=== PATIENT | male | born 1965 | race African-American/Black ===

== ENCOUNTER 2018-03-24 11:19 | Emergency (ER) | payer MEDICARE ==
[~2018-03-24] VITALS: Ht 193 cm; Wt 145.0 kg
[2018-03-24] MEDS ORDERED: ASPIRIN 81MG TABLET PO ONE (12:00)
[2018-03-24] MEDS ORDERED: MORPHINE SULFATE 4 MG/ML CPJ (NOT FOR IM USE) IV ONE (12:00)
[2018-03-24 12:14] LABS: BASOPHILS % 0.2 % (0.0-2.0); EOSINOPHILS % 1.9 % (0.0-5.0); HEMATOCRIT. 43.3 % (42.0-52.0); LYMPHOCYTES % 33.1 % (20.0-50.0); MEAN CORPUSCULAR HEMOGLOBIN 30.5 pg (28.0-32.0); MEAN CORPUSCULAR VOLUME 87.9 fL (80.0-94.0); MEAN PLATELET VOLUME 8.2 fl (7.4-10.4); NEUTROPHILS % 54.8 % (40.0-76.0); PLATELET 361 x1000/uL (130-400); RED BLOOD CELL COUNT 4.92 mill/uL (4.7-6.1); RED CELL DISTRIBUTION WIDTH 14.2 % (11.6-14.6)
[2018-03-24 12:16] LABS: CLARITY URINE CLEAR (CLEAR); COLOR URINE YELLOW (YELLOW); KETONES URINE TRACE (NEGATIVE); LEUKOCYTE ESTERASE URINE NEGATIVE (NEGATIVE); NITRITE URINE NEGATIVE (NEGATIVE); OCCULT BLOOD URINE NEGATIVE (NEGATIVE); PH URINE 6.5 (4.5-8.0); PROTEIN URINE NEGATIVE (NEGATIVE); SPECIFIC GRAVITY URINE 1.028 (1.005-1.030)
[2018-03-24 12:21] LABS: CHLORIDE 102 mEq/L (98-107)
[2018-03-24] MEDS ORDERED: DIPHENHYDRAMINE 50MG/ML VIAL IV ONE (13:45)
[2018-03-24] MEDS ORDERED: KETOROLAC 30MG/ML VIAL IV ONE (16:45)
[2018-03-24 18:04] VITALS: BP 138/74
== END 2018-03-24 18:40 | disposition home or self-care (01) ==
LOC: ER 12:21
DX: R07.89 Other chest pain (principal); M54.6 Pain in thoracic spine; R11.0 Nausea; I10 Essential (primary) hypertension; Z98.890 Other specified postprocedural states
CPT/HCPCS: 36415; 71045; 80053; 81003; 83690; 83880; 84484; 85025; 85610; 93005; 96374; 96375; 99285; J1200; J1885; J2270

== ENCOUNTER 2020-06-21 10:54 | Emergency (ER) | payer MEDICARE, MEDICAID ==
[~2020-06-21] VITALS: Ht 182.9 cm; Wt 136.0 kg
[2020-06-21] MEDS ORDERED: KETOROLAC 60MG/2ML VIAL IM ONE (12:30)
[2020-06-21 13:06] LABS: BASOPHILS % 0.7 % (0.0-2.0); EOSINOPHILS % 1.1 % (0.0-5.0); HEMATOCRIT. 43.4 % (42.0-52.0); HEMOGLOBIN. 15.2 g/dL (14.0-18.0); LYMPHOCYTES % 25.7 % (20.0-50.0); MEAN CORPUSCULAR HEMOGLOBIN 31.3 pg (28.0-32.0); MEAN CORPUSCULAR VOLUME 89.2 fL (80.0-94.0); MEAN PLATELET VOLUME 8.5 fl (7.4-10.4); MONOCYTES % 10.5 % (2.0-8.0); PLATELET 357 x1000/uL (130-400); RED BLOOD CELL COUNT 4.86 mill/uL (4.7-6.1); RED CELL DISTRIBUTION WIDTH 14.1 % (11.6-14.6)
[2020-06-21 13:13] LABS: CHLORIDE 103 mEq/L (98-107)
[2020-06-21] MEDS ORDERED: HYDROCODONE/ACETAMINOPHEN 10/325MG TABLET PO ONE (15:45)
[2020-06-21 16:00] VITALS: BP 136/87
== END 2020-06-21 16:17 | disposition home or self-care (01) ==
LOC: ER 10:54
DX: S29.011A Strain of muscle and tendon of front wall of thorax, initial encounter (principal); R07.89 Other chest pain; I10 Essential (primary) hypertension; Z98.890 Other specified postprocedural states; X58.XXXA Exposure to other specified factors, initial encounter; Y93.89 Activity, other specified; Y92.018 Other place in single-family (private) house as the place of occurrence of the external cause
CPT/HCPCS: 36415; 71045; 71100; 80053; 83880; 84484; 85025; 93005; 96372; 99285; J1885

== ENCOUNTER 2021-06-05 08:40 | Emergency (ER) | payer MEDICARE, MEDICAID ==
[~2021-06-05] VITALS: Ht 185.4 cm; Wt 138.0 kg
[2021-06-05] MEDS ORDERED: IBUPROFEN 600MG TABLET PO ONE (09:15)
[2021-06-05] MEDS ORDERED: IBUP-2028 MT (11:08)
[2021-06-05 11:40] VITALS: BP 156/97
== END 2021-06-05 12:13 | disposition home or self-care (01) ==
LOC: ER 08:40
DX: M54.50 Low back pain, unspecified (principal); M54.6 Pain in thoracic spine; M25.511 Pain in right shoulder; R51.9 Headache, unspecified; V49.88XA Car occupant (driver) (passenger) injured in other specified transport accidents, initial encounter; Y93.89 Activity, other specified; Y92.89 Other specified places as the place of occurrence of the external cause; Y99.8 Other external cause status
CPT/HCPCS: 72070; 72100; 73030; 99284

== ENCOUNTER 2022-06-17 05:15 | Inpatient (IN) | payer MEDICARE, MEDICAID ==
[~2022-06-17] VITALS: Ht 182.9 cm; Wt 125.6 kg
[2022-06-17] VITALS (52 sets, daily range): BP systolic 102–192; BP diastolic 58–120
[~2022-06-17 05:15] MED LIST: IBUP-2028 MT
[2022-06-17] MEDS ORDERED: SODIUM CHLORIDE 0.9% 1,000 ML IV SCH (06:15)
[2022-06-17 06:18] LABS: BASOPHILS % 0.5 % (0.0-2.0); EOSINOPHILS % 1.7 % (0.0-5.0); HEMATOCRIT. 43.4 % (42.0-52.0); HEMOGLOBIN. 14.8 g/dL (14.0-18.0); LYMPHOCYTES % 34.7 % (20.0-50.0); MEAN CORPUSCULAR HEMOGLOBIN 30.4 pg (28.0-32.0); MEAN CORPUSCULAR VOLUME 89.4 fL (80.0-94.0); MEAN PLATELET VOLUME 8.4 fl (7.4-10.4); MONOCYTES % 11.4 % (2.0-8.0); NEUTROPHILS % 51.7 % (40.0-76.0); PLATELET 378 x1000/uL (130-400); RED BLOOD CELL COUNT 4.86 mill/uL (4.7-6.1); RED CELL DISTRIBUTION WIDTH 14.6 % (11.6-14.6)
[2022-06-17] MEDS ORDERED: POLYMYXIN B SULFATE 500000 UNITS/VIAL ONE (06:19)
[2022-06-17] MEDS ORDERED: LIDOCAINE HCL 1%/EPI 1:200,000 30 ML VIAL ONE (06:19)
[2022-06-17] MEDS ORDERED: THROMBIN (BOVINE) 5000 UNITS/VIAL TOP ONE (06:19)
[2022-06-17] MEDS ORDERED: SKIN ADHESIVE 0.7 GM EA TOP ONE ×2 (06:20→06:41)
[2022-06-17] MEDS ORDERED: GENTAMICIN SULF 40MG/ML 2ML VIAL ONE (06:20)
[2022-06-17 06:27] LABS: CLARITY URINE CLEAR (CLEAR); COLOR URINE YELLOW (YELLOW); KETONES URINE NEGATIVE (NEGATIVE); LEUKOCYTE ESTERASE URINE NEGATIVE (NEGATIVE); NITRITE URINE NEGATIVE (NEGATIVE); OCCULT BLOOD URINE NEGATIVE (NEGATIVE); PH URINE 5.5 (4.5-8.0); PROTEIN URINE NEGATIVE (NEGATIVE); SPECIFIC GRAVITY URINE 1.025 (1.005-1.030); UROBILINOGEN URINE 0.2 E.U./dL (0.2-1.0)
[2022-06-17 06:39] LABS: CHLORIDE 107 mEq/L (98-107)
[2022-06-17] MEDS ORDERED: PROPOFOL 200MG/20ML VIAL IV ONE ×2 (06:42→09:33)
[2022-06-17] MEDS ORDERED: LIDOCAINE HCL 1% 50ML VIAL (10MG/ML) ONE (06:42)
[2022-06-17] MEDS ORDERED: FENTANYL CITRATE/PF 50MCG/ML 5ML VIAL ONE (06:43)
[2022-06-17] MEDS ORDERED: SUCCINYLCHOLINE CHLORIDE 200MG/10ML IV ONE (06:46)
[2022-06-17] MEDS ORDERED: ROCURONIUM BROMIDE 10MG/ML VIAL 5ML IV ONE ×2 (06:47→08:16)
[2022-06-17] MEDS ORDERED: PHENYLEPHRINE HCL 10 MG/ML 1ML (IV VIAL) IV ONE ×2 (06:48→07:02)
[2022-06-17] MEDS ORDERED: TRAM50TA3 PO (07:04)
[2022-06-17] MEDS ORDERED: ATEN-42 PO (07:05)
[2022-06-17] MEDS ORDERED: METF-414 PO (07:11)
[2022-06-17] MEDS ORDERED: AMLO10TA80 PO (07:11)
[2022-06-17] MEDS ORDERED: CHOL100036 PO (07:11)
[2022-06-17] MEDS ORDERED: GLYCOPYRROLATE 0.2 MG/ML 2ML VIAL ONE ×3 (08:17→09:26)
[2022-06-17] MEDS ORDERED: ONDANSETRON HCL 4MG/2ML INJ ONE (09:04)
[2022-06-17] MEDS ORDERED: DEXAMETHASONE 4MG/ML 1ML VIAL ONE (09:04)
[2022-06-17] MEDS ORDERED: NEOSTIGMINE METHYLSULFATE 1MG/ML 10 ML VIAL ONE (09:26)
[2022-06-17] MEDS ORDERED: ALBUTEROL 6.7GM HFA INHALER ONE (09:44)
[2022-06-17] MEDS ORDERED: MORPHINE SULFATE 4 MG/ML CPJ (NOT FOR IM USE) IV PRN (10:00)
[2022-06-17] MEDS ORDERED: NALOXONE HCL 0.4MG/ML VIAL IV PRN (10:15)
[2022-06-17] MEDS: DEXT 5%/LACTATED RINGERS 1,000 ML IV SCH ×2 (10:23→20:25)
[2022-06-17] MEDS: NICARDIPINE 100 MG in SODIUM CHLORIDE 0.9% 60 ML IV PRN ×2 (10:40→18:18)
[2022-06-17] MEDS: DEXAMETHASONE 4MG/ML 1ML VIAL IV SCH ×2 (11:12→17:26)
[2022-06-17] MEDS ORDERED: HYDROMORPHONE HCL/PF 2MG/ML CPJ IV NR (13:00)
[2022-06-17] MEDS: CEFAZOLIN 1000MG PREMIX 50 ML IV SCH ×2 (13:04→21:47)
[2022-06-17] MEDS ORDERED: CEFAZOLIN SODIUM 1000MG/VIAL IV SCH (14:00)
[2022-06-17] MEDS ORDERED: HYDROMORPHONE HCL/PF 2MG/ML CPJ IM PRN (14:15)
[2022-06-17] MEDS: HYDROMORPHONE HCL/PF 2MG/ML CPJ IV PRN ×2 (17:55→21:48)
[2022-06-18] VITALS (92 sets, daily range): BP systolic 90–147; BP diastolic 42–92
[2022-06-18] MEDS: DEXAMETHASONE 4MG/ML 1ML VIAL IV SCH ×3 (00:14→11:20)
[2022-06-18] MEDS: DIPHENHYDRAMINE 50MG/ML VIAL IV PRN (00:14)
[2022-06-18] MEDS: NICARDIPINE 100 MG in SODIUM CHLORIDE 0.9% 60 ML IV PRN ×3 (01:44→18:19)
[2022-06-18] MEDS: HYDROMORPHONE HCL/PF 2MG/ML CPJ IV PRN (03:46)
[2022-06-18 05:44] LABS: BASOPHILS % 0.1 % (0.0-2.0); HEMATOCRIT. 39.7 % (42.0-52.0); HEMOGLOBIN. 13.5 g/dL (14.0-18.0); LYMPHOCYTES % 8.2 % (20.0-50.0); MEAN CORPUSCULAR HEMOGLOBIN 30.8 pg (28.0-32.0); MEAN CORPUSCULAR VOLUME 90.2 fL (80.0-94.0); MEAN PLATELET VOLUME 8.6 fl (7.4-10.4); MONOCYTES % 5.7 % (2.0-8.0); PLATELET 344 x1000/uL (130-400); RED CELL DISTRIBUTION WIDTH 14.3 % (11.6-14.6)
[2022-06-18] MEDS: CEFAZOLIN 1000MG PREMIX 50 ML IV SCH ×3 (05:45→21:21)
[2022-06-18] MEDS: DEXT 5%/LACTATED RINGERS 1,000 ML IV SCH ×2 (05:46→16:37)
[2022-06-18] MEDS ORDERED: DEXTROSE 50% WATER 50ML SYRINGE IV PRN ×2 (09:45→18:45)
[2022-06-18] MEDS: AMLODIPINE 10MG TABLET PO SCH (10:02)
[2022-06-18] MEDS ORDERED: HYDROMORPHONE HCL/PF 2MG/ML CPJ IV PRN (11:00)
[2022-06-18] MEDS ORDERED: ACETAMINOPHEN 325MG TABLET PO PRN (11:00)
[2022-06-18] MEDS: CHOLECALCIFEROL (D3) 1000 UNIT TABLET PO SCH (11:20)
[2022-06-18] MEDS: BLOOD SUGAR DIAGNOSTIC STRIP TEST SCH ×3 (11:22→21:16)
[2022-06-18] MEDS: HYDROCODONE/ACETAMINOPHEN 5/325MG TABLET PO PRN ×2 (11:22→17:42)
[2022-06-18] MEDS: INSULIN LISPRO 100 UNITS/ML SUBCUT SCH ×3 (12:29→21:21)
[2022-06-19] VITALS (98 sets, daily range): BP systolic 118–154; BP diastolic 60–102
[2022-06-19 06:20] LABS: HEMATOCRIT. 40.5 % (42.0-52.0); HEMOGLOBIN. 13.7 g/dL (14.0-18.0); MEAN CORPUSCULAR HEMOGLOBIN 30.6 pg (28.0-32.0); MEAN CORPUSCULAR VOLUME 90.6 fL (80.0-94.0); MEAN PLATELET VOLUME 8.7 fl (7.4-10.4); PLATELET 362 x1000/uL (130-400); RED BLOOD CELL COUNT 4.47 mill/uL (4.7-6.1); RED CELL DISTRIBUTION WIDTH 14.9 % (11.6-14.6)
[2022-06-19] MEDS: BLOOD SUGAR DIAGNOSTIC STRIP TEST SCH ×4 (06:22→21:59)
[2022-06-19] MEDS: CEFAZOLIN 1000MG PREMIX 50 ML IV SCH ×2 (06:28→13:36)
[2022-06-19] MEDS: INSULIN LISPRO 100 UNITS/ML SUBCUT SCH ×4 (06:29→21:59)
[2022-06-19 06:56] LABS: CHLORIDE 108 mEq/L (98-107); HDL CHOLESTEROL 72 mg/dL (40-59); LDL CHOLESTEROL 71 mg/dL (5-100)
[2022-06-19] MEDS: ATENOLOL 25MG TABLET PO SCH (08:13)
[2022-06-19] MEDS: AMLODIPINE 10MG TABLET PO SCH (08:13)
[2022-06-19] MEDS: CHOLECALCIFEROL (D3) 1000 UNIT TABLET PO SCH (08:13)
[2022-06-19] MEDS: DIPHENHYDRAMINE 50MG/ML VIAL IV PRN (09:57)
[2022-06-19] MEDS ORDERED: FUROSEMIDE 20MG TABLET PO NR (11:00)
[2022-06-19] MEDS: NICARDIPINE 100 MG in SODIUM CHLORIDE 0.9% 60 ML IV PRN (12:06)
[2022-06-19] MEDS: POLYETHYLENE GLYCOL 3350 (17GM) 1 DOSE PACK PO SCH (12:43)
[2022-06-19] MEDS: LOSARTAN POTASSIUM 25 MG TABLET PO SCH (13:36)
[2022-06-19 14:34] LABS: PLATELET ESTIMATE NORMAL
[2022-06-20] VITALS (39 sets, daily range): BP systolic 121–160; BP diastolic 70–94
[2022-06-20 05:49] LABS: CHLORIDE 105 mEq/L (98-107)
[2022-06-20] MEDS: INSULIN LISPRO 100 UNITS/ML SUBCUT SCH ×4 (06:47→21:30)
[2022-06-20] MEDS: BLOOD SUGAR DIAGNOSTIC STRIP TEST SCH ×4 (06:47→20:55)
[2022-06-20] MEDS: ATENOLOL 25MG TABLET PO SCH (08:36)
[2022-06-20] MEDS: CHOLECALCIFEROL (D3) 1000 UNIT TABLET PO SCH (08:36)
[2022-06-20] MEDS: POLYETHYLENE GLYCOL 3350 (17GM) 1 DOSE PACK PO SCH (08:36)
[2022-06-20] MEDS: LOSARTAN POTASSIUM 25 MG TABLET PO SCH (08:36)
[2022-06-20] MEDS: AMLODIPINE 10MG TABLET PO SCH (08:36)
[2022-06-20] MEDS ORDERED: HYDRALAZINE 20MG/ML VIAL IV PRN (15:30)
[2022-06-20] MEDS: DOCUSATE SODIUM 100MG CAPSULE PO SCH (17:47)
[2022-06-21] VITALS: BP 153/95
[2022-06-21 04:00] VITALS: BP 148/94
[2022-06-21] MEDS: BLOOD SUGAR DIAGNOSTIC STRIP TEST SCH ×4 (07:40→21:26)
[2022-06-21 08:00] VITALS: BP 148/92
[2022-06-21] MEDS: INSULIN LISPRO 100 UNITS/ML SUBCUT SCH ×4 (08:10→21:26)
[2022-06-21] MEDS: ATENOLOL 25MG TABLET PO SCH (09:02)
[2022-06-21] MEDS: DOCUSATE SODIUM 100MG CAPSULE PO SCH ×2 (09:02→17:44)
[2022-06-21] MEDS: AMLODIPINE 10MG TABLET PO SCH (09:03)
[2022-06-21] MEDS: POLYETHYLENE GLYCOL 3350 (17GM) 1 DOSE PACK PO SCH (09:03)
[2022-06-21] MEDS: CHOLECALCIFEROL (D3) 1000 UNIT TABLET PO SCH (09:03)
[2022-06-21] MEDS: LOSARTAN POTASSIUM 25 MG TABLET PO SCH (09:03)
[2022-06-21 12:00] VITALS: BP 131/90
[2022-06-21] MEDS: HYDROCODONE/ACETAMINOPHEN 5/325MG TABLET PO PRN (15:02)
[2022-06-21 16:00] VITALS: BP 142/91
[2022-06-21 20:00] VITALS: BP 162/99
[2022-06-22] VITALS: BP 122/77
[2022-06-22 04:00] VITALS: BP 143/81
[2022-06-22] MEDS: INSULIN LISPRO 100 UNITS/ML SUBCUT SCH ×4 (06:05→20:33)
[2022-06-22] MEDS: BLOOD SUGAR DIAGNOSTIC STRIP TEST SCH ×4 (06:06→20:33)
[2022-06-22 06:28] LABS: BASOPHILS % 0.1 % (0.0-2.0); EOSINOPHILS % 1.2 % (0.0-5.0); HEMOGLOBIN. 14.8 g/dL (14.0-18.0); LYMPHOCYTES % 22.1 % (20.0-50.0); MEAN CORPUSCULAR HEMOGLOBIN 30.2 pg (28.0-32.0); MEAN CORPUSCULAR VOLUME 87.8 fL (80.0-94.0); MEAN PLATELET VOLUME 7.8 fl (7.4-10.4); MONOCYTES % 14.5 % (2.0-8.0); NEUTROPHILS % 62.1 % (40.0-76.0); PLATELET 268 x1000/uL (130-400); RED CELL DISTRIBUTION WIDTH 14.7 % (11.6-14.6)
[2022-06-22 07:07] LABS: CHLORIDE 105 mEq/L (98-107)
[2022-06-22 08:00] VITALS: BP 177/96
[2022-06-22] MEDS: POLYETHYLENE GLYCOL 3350 (17GM) 1 DOSE PACK PO SCH (10:27)
[2022-06-22] MEDS: ATENOLOL 25MG TABLET PO SCH (10:27)
[2022-06-22] MEDS: DOCUSATE SODIUM 100MG CAPSULE PO SCH ×2 (10:28→18:07)
[2022-06-22] MEDS: CHOLECALCIFEROL (D3) 1000 UNIT TABLET PO SCH (10:28)
[2022-06-22] MEDS: AMLODIPINE 10MG TABLET PO SCH (10:28)
[2022-06-22] MEDS: HYDROCODONE/ACETAMINOPHEN 5/325MG TABLET PO PRN ×2 (10:28→16:58)
[2022-06-22] MEDS: LOSARTAN POTASSIUM 25 MG TABLET PO SCH (10:34)
[2022-06-22 12:00] VITALS: BP 145/97
[2022-06-22 16:00] VITALS: BP 157/86
[2022-06-22 16:58] VITALS: BP 151/94
== END 2022-06-22 22:00 | DRG 471 ==
LOC: OR 05:15 → MICUNO 09:56 → 7WST 06-20 15:50
PROVIDERS: ADMIT Internal Medicine; ATTEND Internal Medicine
PROC: 0RG2071 Fusion of 2 or more Cervical Vertebral Joints with Autologous Tissue Substitute, Posterior Approach, Posterior Column, Open Approach (ICD-10-PCS; principal; 2022-06-17)
PROC: 00NW0ZZ Release Cervical Spinal Cord, Open Approach (ICD-10-PCS; 2022-06-17)
PROC: 4A11X4G Monitoring of Peripheral Nervous Electrical Activity, Intraoperative, External Approach (ICD-10-PCS; 2022-06-17)
PROC: 5A09357 Assistance with Respiratory Ventilation, Less than 24 Consecutive Hours, Continuous Positive Airway Pressure (ICD-10-PCS; 2022-06-17)
PROC: 5A09357 Assistance with Respiratory Ventilation, Less than 24 Consecutive Hours, Continuous Positive Airway Pressure (ICD-10-PCS; 2022-06-18)
PROC: 5A09357 Assistance with Respiratory Ventilation, Less than 24 Consecutive Hours, Continuous Positive Airway Pressure (ICD-10-PCS; 2022-06-19)
DX: M48.02 Spinal stenosis, cervical region (principal); G82.50 Quadriplegia, unspecified; J96.01 Acute respiratory failure with hypoxia; M47.12 Other spondylosis with myelopathy, cervical region; G95.29 Other cord compression; J81.1 Chronic pulmonary edema; I10 Essential (primary) hypertension; E78.5 Hyperlipidemia, unspecified; E66.9 Obesity, unspecified; R29.6 Repeated falls; G47.33 Obstructive sleep apnea (adult) (pediatric); E11.65 Type 2 diabetes mellitus with hyperglycemia; R26.9 Unspecified abnormalities of gait and mobility; D64.9 Anemia, unspecified; G89.4 Chronic pain syndrome; D72.829 Elevated white blood cell count, unspecified; N28.9 Disorder of kidney and ureter, unspecified; Z79.84 Long term (current) use of oral hypoglycemic drugs; Z82.49 Family history of ischemic heart disease and other diseases of the circulatory system; Z68.37 Body mass index [BMI] 37.0-37.9, adult; Z20.822 Contact with and (suspected) exposure to COVID-19
CPT/HCPCS: 36415; 71045; 72040; 72141; 76000; 80048; 80061; 81003; 82962; 83036; 83735; 83880; 84100; 85025; 86850; 86900; 87426; 88311; 93306; 94660; 95863; 95925; 95928; 95929; 97110; 97116; 97162; 97166; 97530; 97535; C9803; J0330; J0690; J1100; J1170; J1200; J1580; J1815; J2270; J2370; J2405; J2704; J2710; J3010; J3490; J7050; J7121; L0172; C1713

== ENCOUNTER 2022-06-22 22:00 | Inpatient (IN) | payer MEDICARE, MEDICAID ==
[~2022-06-22] VITALS: Ht 182.9 cm; Wt 125.6 kg
[2022-06-22 22:00] VITALS: BP 144/95
[~2022-06-22 22:00] MED LIST changes: +AMLO10TA80 PO; +ATEN-42 PO; +CHOL100036 PO; +METF-414 PO; +TRAM50TA3 PO
[2022-06-23] MEDS ORDERED: HYDROMORPHONE HCL/PF 2MG/ML CPJ IV PRN
[2022-06-23] MEDS ORDERED: NALOXONE HCL 0.4 MG/ML 1ML VIAL IV PRN
[2022-06-23] MEDS ORDERED: DIPHENHYDRAMINE 50MG/ML VIAL IV PRN
[2022-06-23] MEDS ORDERED: HYDRALAZINE 20MG/ML VIAL IV PRN
[2022-06-23] MEDS ORDERED: DEXTROSE 50% WATER 50ML SYRINGE IV PRN
[2022-06-23] MEDS ORDERED: ACETAMINOPHEN 325MG TABLET PO PRN
[2022-06-23] MEDS: BLOOD SUGAR DIAGNOSTIC STRIP TEST SCH ×4 (05:29→21:02)
[2022-06-23] MEDS ORDERED: HYDRALAZINE 5 MG in SODIUM CHLORIDE 0.9% 49.5 ML IV PRN (06:00)
[2022-06-23 06:59] LABS: BASOPHILS % 0.1 % (0.0-2.0); EOSINOPHILS % 1.6 % (0.0-5.0); HEMATOCRIT. 43.5 % (42.0-52.0); HEMOGLOBIN. 14.8 g/dL (14.0-18.0); LYMPHOCYTES % 20.8 % (20.0-50.0); MEAN CORPUSCULAR HEMOGLOBIN 30.2 pg (28.0-32.0); MEAN CORPUSCULAR VOLUME 88.7 fL (80.0-94.0); MEAN PLATELET VOLUME 8.2 fl (7.4-10.4); MONOCYTES % 12.2 % (2.0-8.0); NEUTROPHILS % 65.3 % (40.0-76.0); PLATELET 259 x1000/uL (130-400); RED CELL DISTRIBUTION WIDTH 14.2 % (11.6-14.6)
[2022-06-23 07:12] LABS: CHLORIDE 100 mEq/L (98-107)
[2022-06-23] MEDS: HYDROCODONE/ACETAMINOPHEN 5/325MG TABLET PO PRN ×2 (07:59→16:50)
[2022-06-23 08:00] VITALS: BP 167/102
[2022-06-23] MEDS: DOCUSATE SODIUM 100MG CAPSULE PO SCH ×2 (08:09→16:50)
[2022-06-23] MEDS: POLYETHYLENE GLYCOL 3350 (17GM) 1 DOSE PACK PO SCH (08:09)
[2022-06-23] MEDS: ATENOLOL 25MG TABLET PO SCH (08:10)
[2022-06-23] MEDS: AMLODIPINE 10MG TABLET PO SCH (08:10)
[2022-06-23] MEDS: LOSARTAN POTASSIUM 25 MG TABLET PO SCH (08:10)
[2022-06-23] MEDS: CHOLECALCIFEROL (D3) 1000 UNIT TABLET PO SCH (08:10)
[2022-06-23] MEDS: INSULIN LISPRO 100 UNITS/ML SUBCUT SCH ×4 (09:28→22:08)
[2022-06-23 12:00] VITALS: BP 130/66
[2022-06-23 16:00] VITALS: BP 140/88
[2022-06-23 20:00] VITALS: BP 130/78
[2022-06-24] VITALS: BP 129/76
[2022-06-24] MEDS: HYDROCODONE/ACETAMINOPHEN 5/325MG TABLET PO PRN ×2 (00:04→20:48)
[2022-06-24] MEDS: BLOOD SUGAR DIAGNOSTIC STRIP TEST SCH ×4 (06:12→21:00)
[2022-06-24] MEDS: INSULIN LISPRO 100 UNITS/ML SUBCUT SCH ×3 (06:40→21:00)
[2022-06-24 08:30] VITALS: BP 141/89
[2022-06-24 09:00] VITALS: BP 130/75
[2022-06-24] MEDS: LOSARTAN POTASSIUM 25 MG TABLET PO SCH (09:11)
[2022-06-24] MEDS: CHOLECALCIFEROL (D3) 1000 UNIT TABLET PO SCH (09:11)
[2022-06-24] MEDS: DOCUSATE SODIUM 100MG CAPSULE PO SCH ×2 (09:11→16:40)
[2022-06-24] MEDS: ATENOLOL 25MG TABLET PO SCH (09:12)
[2022-06-24] MEDS: AMLODIPINE 10MG TABLET PO SCH (09:12)
[2022-06-24] MEDS: POLYETHYLENE GLYCOL 3350 (17GM) 1 DOSE PACK PO SCH (09:13)
[2022-06-24 10:21] LABS: VITAMIN B12 SERUM 284 pg/mL (211-911)
[2022-06-24 12:00] VITALS: BP 132/71
[2022-06-24 16:00] VITALS: BP 137/67
[2022-06-24] MEDS: CYANOCOBALAMIN 1000MCG/ML VIAL IM SCH (16:39)
[2022-06-24] MEDS: FOLIC ACID 1MG TABLET PO SCH (16:40)
[2022-06-24 20:00] VITALS: BP 138/84
[2022-06-25] MEDS: BLOOD SUGAR DIAGNOSTIC STRIP TEST SCH ×4 (06:25→21:14)
[2022-06-25] MEDS: INSULIN LISPRO 100 UNITS/ML SUBCUT SCH ×4 (06:43→21:21)
[2022-06-25] MEDS: DOCUSATE SODIUM 100MG CAPSULE PO SCH ×2 (07:54→17:30)
[2022-06-25] MEDS: POLYETHYLENE GLYCOL 3350 (17GM) 1 DOSE PACK PO SCH (07:54)
[2022-06-25] MEDS: FOLIC ACID 1MG TABLET PO SCH (07:56)
[2022-06-25] MEDS: AMLODIPINE 10MG TABLET PO SCH (07:56)
[2022-06-25] MEDS: ATENOLOL 25MG TABLET PO SCH (07:57)
[2022-06-25] MEDS: CYANOCOBALAMIN 1000MCG/ML VIAL IM SCH (07:57)
[2022-06-25] MEDS: CHOLECALCIFEROL (D3) 1000 UNIT TABLET PO SCH (07:57)
[2022-06-25] MEDS: LOSARTAN POTASSIUM 25 MG TABLET PO SCH (07:58)
[2022-06-25 08:00] VITALS: BP 167/96
[2022-06-25] MEDS: HYDROCODONE/ACETAMINOPHEN 5/325MG TABLET PO PRN ×2 (16:18→21:37)
[2022-06-25 19:54] VITALS: BP 167/88
[2022-06-25] MEDS: CEPHALEXIN 250MG CAPSULE PO SCH (21:17)
[2022-06-26] MEDS: BLOOD SUGAR DIAGNOSTIC STRIP TEST SCH ×4 (05:40→21:15)
[2022-06-26] MEDS: CEPHALEXIN 250MG CAPSULE PO SCH ×3 (05:41→21:17)
[2022-06-26] MEDS: INSULIN LISPRO 100 UNITS/ML SUBCUT SCH ×4 (05:49→21:15)
[2022-06-26 08:00] VITALS: BP 140/77
[2022-06-26] MEDS: DOCUSATE SODIUM 100MG CAPSULE PO SCH ×2 (08:03→16:38)
[2022-06-26] MEDS: POLYETHYLENE GLYCOL 3350 (17GM) 1 DOSE PACK PO SCH (08:03)
[2022-06-26] MEDS: CYANOCOBALAMIN 1000MCG/ML VIAL IM SCH (08:04)
[2022-06-26] MEDS: LOSARTAN POTASSIUM 25 MG TABLET PO SCH (08:04)
[2022-06-26] MEDS: AMLODIPINE 10MG TABLET PO SCH (08:04)
[2022-06-26] MEDS: ATENOLOL 25MG TABLET PO SCH (08:04)
[2022-06-26] MEDS: CHOLECALCIFEROL (D3) 1000 UNIT TABLET PO SCH (08:04)
[2022-06-26] MEDS: FOLIC ACID 1MG TABLET PO SCH (08:05)
[2022-06-26] MEDS ORDERED: CEPH500C2 MT (13:07)
[2022-06-26] MEDS ORDERED: LOSA25TA3 PO (13:07)
[2022-06-26] MEDS: HYDROCODONE/ACETAMINOPHEN 5/325MG TABLET PO PRN ×2 (14:15→21:19)
[2022-06-26 20:14] VITALS: BP 167/94
[2022-06-27] MEDS: CEPHALEXIN 250MG CAPSULE PO SCH (06:14)
[2022-06-27] MEDS: INSULIN LISPRO 100 UNITS/ML SUBCUT SCH (06:17)
[2022-06-27] MEDS: BLOOD SUGAR DIAGNOSTIC STRIP TEST SCH (06:17)
[2022-06-27 09:00] VITALS: BP 155/94
[2022-06-27 09:37] VITALS: BP 167/94
[2022-06-27] MEDS: AMLODIPINE 10MG TABLET PO SCH (09:37)
[2022-06-27] MEDS: HYDROCODONE/ACETAMINOPHEN 5/325MG TABLET PO PRN (09:37)
[2022-06-27] MEDS: ATENOLOL 25MG TABLET PO SCH (09:37)
[2022-06-27] MEDS: LOSARTAN POTASSIUM 25 MG TABLET PO SCH (09:37)
[2022-06-27] MEDS: DOCUSATE SODIUM 100MG CAPSULE PO SCH (09:37)
[2022-06-27] MEDS: CHOLECALCIFEROL (D3) 1000 UNIT TABLET PO SCH (09:37)
[2022-06-27] MEDS: POLYETHYLENE GLYCOL 3350 (17GM) 1 DOSE PACK PO SCH (09:38)
[2022-06-27] MEDS: FOLIC ACID 1MG TABLET PO SCH (09:38)
[2022-06-27] MEDS: CYANOCOBALAMIN 1000MCG/ML VIAL IM SCH (09:38)
[2022-07-01] MEDS ORDERED: CYANOCOBALAMIN 1000MCG/ML VIAL IM SCH (09:00)
== END 2022-06-27 16:35 | disposition home or self-care (01) | DRG 551 ==
PROVIDERS: ADMIT Physical Medicine & Rehabilitation Spinal Cord Injury Medicine; ATTEND Internal Medicine
DX: M48.02 Spinal stenosis, cervical region (principal); G82.50 Quadriplegia, unspecified; G95.20 Unspecified cord compression; D64.9 Anemia, unspecified; E53.8 Deficiency of other specified B group vitamins; E78.5 Hyperlipidemia, unspecified; G89.4 Chronic pain syndrome; I10 Essential (primary) hypertension; F41.9 Anxiety disorder, unspecified; L08.9 Local infection of the skin and subcutaneous tissue, unspecified; F06.34 Mood disorder due to known physiological condition with mixed features; E66.9 Obesity, unspecified; R26.9 Unspecified abnormalities of gait and mobility; R20.0 Anesthesia of skin; R53.81 Other malaise; E11.65 Type 2 diabetes mellitus with hyperglycemia; D72.829 Elevated white blood cell count, unspecified; Z82.49 Family history of ischemic heart disease and other diseases of the circulatory system; Z79.84 Long term (current) use of oral hypoglycemic drugs; Z68.37 Body mass index [BMI] 37.0-37.9, adult; Z91.81 History of falling; Z79.899 Other long term (current) drug therapy
CPT/HCPCS: 36415; 80053; 82306; 82607; 82746; 82962; 83036; 84134; 85025; 92610; 93970; 94660; 97110; 97112; 97116; 97162; 97166; 97530; 97535; J1815; J3420; L0172

== ENCOUNTER 2024-03-23 06:51 | Emergency (ER) | payer MEDICARE, MEDICAID ==
[~2024-03-23] VITALS: Ht 188 cm; Wt 125.0 kg
[~2024-03-23 06:51] MED LIST changes: +CEPH500C2 MT; +HYDR-4001 MT; -IBUP-2028 MT; +LOSA-412 PO
[2024-03-23 07:16] VITALS: O2SAT 98
[2024-03-23] MEDS: OXYCODONE HCL/ACETAMINOPHEN 5/325MG TABLET PO ONE (09:05)
[2024-03-23] MEDS ORDERED: METH-653 MT (10:52)
[2024-03-23] MEDS ORDERED: TRAM50TA3 PO (10:52)
[2024-03-23] MEDS ORDERED: LIDO700A15 TP (10:52)
[2024-03-23] MEDS ORDERED: IBUP-2030 MT (10:55)
[2024-03-23 11:13] VITALS: BP 133/79; PULSE 57; RESP 18; TEMP 36.89184; O2SAT 98
== END 2024-03-23 11:28 | disposition home or self-care (01) ==
LOC: ER 07:39
DX: G89.29 Other chronic pain (principal); M54.50 Low back pain, unspecified; I10 Essential (primary) hypertension; E11.9 Type 2 diabetes mellitus without complications; Z98.890 Other specified postprocedural states; Z79.899 Other long term (current) drug therapy
CPT/HCPCS: 72131; 99284

== ENCOUNTER 2024-08-24 07:40 | Emergency (ER) | payer MEDICARE, MEDICAID ==
[~2024-08-24] VITALS: Ht 182.9 cm; Wt 141.0 kg
[~2024-08-24 07:40] MED LIST changes: +IBUP-2030 MT; +LIDO700A15 TP; +METH-653 MT; -TRAM50TA3 PO
[2024-08-24 08:05] VITALS: O2SAT 96
[2024-08-24] MEDS: TETRACAINE 0.5% OPHTH DROPS 4ML BOTHEYE ONE (11:37)
[2024-08-24] MEDS: FLUORESCEIN SODIUM 1MG/STRIP BOTHEYE ONE (11:37)
[2024-08-24 11:39] VITALS: BP 134/90; PULSE 84; RESP 19; TEMP 36.8; O2SAT 98
== END 2024-08-24 11:41 | disposition home or self-care (01) ==
LOC: ER 07:40
DX: J06.9 Acute upper respiratory infection, unspecified (principal); B97.89 Other viral agents as the cause of diseases classified elsewhere; B30.9 Viral conjunctivitis, unspecified; E11.9 Type 2 diabetes mellitus without complications; I10 Essential (primary) hypertension; Z79.899 Other long term (current) drug therapy; Z79.84 Long term (current) use of oral hypoglycemic drugs
CPT/HCPCS: 71045; 99283